=== PATIENT | female | born 1970 | race Caucasian/White ===

== ENCOUNTER 2021-12-19 09:54 | Inpatient (IN) ==
[2021-12-19] MEDS ORDERED: cefOXitin 2,000 MG in 0.9 % Sodium Chloride 20 ML IVP ONE (10:16)
[2021-12-19] MEDS ORDERED: Ringers Solution, Lactated 1,000 ML IVC SCH (10:30)
[2021-12-19] MEDS ORDERED: Acetaminophen IV 1,000 MG/100 ML BAG IVPB ONE (10:39)
[2021-12-19] MEDS ORDERED: Scopolamine Patch 1.5 MG PATCH.TD72 TD ONE (10:40)
[2021-12-19] MEDS ORDERED: *HR* FentaNYL (PF) 100 MCG/2 ML VIAL ONE (10:58)
[2021-12-19] MEDS ORDERED: *HR* Propofol 200 MG/20 ML VIAL IVP ONE (10:58)
[2021-12-19] MEDS ORDERED: *HR* Midazolam HCl 2 MG/2 ML VIAL ONE (10:58)
[2021-12-19] MEDS ORDERED: Lidocaine -MPF 2% 5 ML VIAL ONE (11:05)
[2021-12-19] MEDS ORDERED: Lidocaine HCL 4 ML Topical Solution (Laryng-O-Jet Kit Sterile Pak) TP ONE (11:05)
[2021-12-19] MEDS ORDERED: *HR* Rocuronium Bromide 50 MG/5 ML VIAL ONE ×2 (11:05→13:21)
[2021-12-19] MEDS ORDERED: Ondansetron 4 MG/2 ML VIAL ONE (11:05)
[2021-12-19] MEDS ORDERED: Lidocaine 1% 0 ML ONE (12:20)
[2021-12-19] MEDS ORDERED: Lidocaine/EPI 1:100k 2% 20 ML VIAL ONE (12:26)
[2021-12-19] MEDS ORDERED: Lidocaine/EPI 1:200k 1% PF 10 ML VIAL ONE (12:35)
[2021-12-19] MEDS ORDERED: Sugammadex Sodium 200 MG/2 ML VIAL IV ONE (13:17)
[2021-12-19] MEDS ORDERED: *HR* HYDROMORPHONE 2 MG/ML VIAL ONE (13:22)
[2021-12-19] MEDS ORDERED: *HR* Vasopressin 20 UNIT/ML VIAL ONE (13:47)
[2021-12-19] MEDS ORDERED: *HR* HYDROmorphone (PF) 1 MG/ML SYRINGE ONE (15:14)
[2021-12-19] MEDS: *HR* HYDROmorphone PF 0.5 MG/0.5 ML SYRINGE IVP PRN ×4 (15:15→15:35)
[2021-12-19] MEDS ORDERED: *HR* Meperidine 25 MG/ML SYRINGE IVP PRN (15:41)
[2021-12-19] MEDS ORDERED: *HR* HYDROcodone/Acet 5/325 mg TABLET PO PRN (16:41)
[2021-12-19] MEDS ORDERED: Metoprolol XL (24 HR) Succ 25 MG TAB.ER.24H PO PRN (16:41)
[2021-12-19] MEDS ORDERED: Naloxone 0.4 MG/ML INJ IVP PRN (16:41)
[2021-12-19] MEDS ORDERED: cefOXitin 1,000 MG in 0.9 % Sodium Chloride Mini Bag 100 ML IVPB SCH (16:41)
[2021-12-19] MEDS ORDERED: *HR* OxyCODONE Immed Rel 5 MG TABLET PO PRN (18:41)
[2021-12-19] MEDS: Ibuprofen 600 MG TABLET PO PRN (18:53)
[2021-12-19] MEDS: cefOXitin 1,000 MG in 0.9 % Sodium Chloride Mini Bag 100 ML IVPB SCH (20:37)
[2021-12-19] MEDS: Simethicone 80 MG TAB.CHEW PO PRN (21:02)
[2021-12-19] MEDS: *HR* OxyCODONE Immed Rel 5 MG TABLET PO PRN (23:48)
[2021-12-20] MEDS: Ibuprofen 600 MG TABLET PO PRN ×2 (02:41→08:00)
[2021-12-20] MEDS: cefOXitin 1,000 MG in 0.9 % Sodium Chloride Mini Bag 100 ML IVPB SCH ×2 (03:54→11:57)
[2021-12-20] MEDS: *HR* OxyCODONE Immed Rel 5 MG TABLET PO PRN ×3 (04:32→12:42)
[2021-12-20 05:57] LABS: Basophils % 0.1 %; Eosinophils % 0.1 %; Hematocrit 32.5 % (35.3-44.9); Hemoglobin 10.8 g/dL (11.5-15.4); Immature Granulocytes % 0.4 % (0-4); Lymphocytes # 0.8 K/mcL (0.6-4.6); Lymphocytes % 8.4 %; Mean Corpuscular HGB Conc 33.2 g/dL (31.6-35.5); Mean Corpuscular Hemoglobin 30.9 pg (28.0-33.3); Mean Corpuscular Volume 93.1 fL (83.0-100.0); Mean Platelet Volume 10.9 fL (9.4-12.4); Monocytes % 10.7 %; Neutrophils # 7.1 K/mcL (1.6-8.9); Platelet Count 223 K/mcL (140-400); Red Blood Count 3.49 M/mcL (3.82-4.97); Red Cell Distribution Width 12.4 % (11.5-14.5); Segmented Neutrophils % 80.3 %; White Blood Count 8.9 K/mcL (4.3-11.1)
[2021-12-20] MEDS: Simethicone 80 MG TAB.CHEW PO PRN (08:00)
[2021-12-20] MEDS ORDERED: *HR* OxyCODONE Immed Rel 5 MG TABLET PO PRN (08:33)
[2021-12-20] MEDS ORDERED: Ibuprofen 400 MG TABLET PO SCH (12:00)
[2021-12-20 12:15] VITALS: BP 92/59; PULSE 62; TEMP 98.7; O2SAT 98
[2021-12-20] MEDS ORDERED: Acetaminophen 325 MG TABLET PO SCH (14:00)
== END 2021-12-20 13:00 | disposition home or self-care (01) | DRG 743 ==
LOC: SAMDAY 09:54 → 1NENUOBS 14:37
PROVIDERS: ADMIT Student in an Organized Health Care Education/Training Program; ATTEND Student in an Organized Health Care Education/Training Program
PROC: GYNLAVH (ICD-10-PCS; 2021-12-19 11:55)